=== PATIENT | female | born 1975 | race Caucasian/White ===

== ENCOUNTER 2021-03-19 10:35 | Emergency (ER) | payer OTHER, SELFPAY ==
--- NOTE | ~2021-03-19 | XR_ITS ---
XR foot LT min 3V 03/19/2021 10:59 INDICATION: Left toe foot pain PROCEDURE: 4 views left foot COMPARISON: No prior studies for comparison. FINDINGS: Fracture, dislocation or subluxation is not identified. Lisfranc joint intact. The soft tis sues appear within normal limits. No foreign bodies are identified. IMPRESSION: 1: NO ACUTE BONE OR JOINT ABNORMALITY IDENTIFIED. Reviewed, dictated and finalized at location B.
--- NOTE | 2021-03-19 10:37 | ED.LOWEXIN ---
HPI - Extremity Injury (Lower) General Chief Complaint: Extremity Injury, Lower Stated Complaint: left foot and toe injury Time Seen by Provider: 03/19/21 10:37 Source: patient and RN notes reviewed History of Present Illness HPI Narrative: Patient is a 46-year-old female who presents the urgent care with complaints of left second toe pain and left foot swelling. Patient states that 2 days ago she was knocked over by 2 pit bulls and at that time something happened to the left toe. Patient denies of any wound to the toe and states that she has been james taping it due to a like lead dislocation. Patient has also used ibuprofen for the pain. Patient states that today she noticed some swelling of the left foot and pain radiating up the left foot. No other acute complaints. No acute distress noted. Patient aware of the plan of care. Some parts of this dictation were generated by voice recognition software and may contain typographical and/or grammatical inaccuracies. Related Data Home Medications Medication Instructions Recorded Confirmed amlodipine 5 mg PO DAILY 03/19/21 03/19/21 lacosamide [Vimpat] 200 mg PO Q12H 03/19/21 03/19/21 lamotrigine [Lamictal] 200 mg PO BID 03/19/21 03/19/21 venlafaxine [Effexor XR] 150 mg PO DAILY 03/19/21 03/19/21 Allergies Allergy/AdvReac Type Severity Reaction Status Date / Time Iodinated Contrast Media Allergy Hives Verified 03/19/21 10:53 shellfish derived Allergy Hives Verified 03/19/21 10:53 vancomycin Allergy Hives Verified 03/19/21 10:53 Review of Systems Review of Systems: Narrative: CONSTITUTIONAL: Denies fever, chills, or sweats. EYES: Denies visual changes, redness, or discharge. ENT: Denies rhinorrhea, congestion, sore throat, or otalgia. CARDIOVASCULAR: Denies chest pain, palpitations, or edema. RESPIRATORY: Denies cough or dyspnea. GASTROINTESTINAL: Denies abdominal pain, nausea, vomiting, or diarrhea. GENITOURINARY: Denies dysuria or hematuria. SKIN: Denies rash or itching. MUSCULOSKELETAL: Reports of left foot pain and swelling as well as left second digit pain NEUROLOGIC: Denies headache, numbness, or weakness. All other systems reviewed are negative, except as documented in HPI. PMFSH Comments At the time of my signature, I reviewed and agree with the nursing past medical, surgical, social, and family history. There is no relevant family history pertinent to the patient complaint. Exam Narrative: Exam Narrative: GENERAL: This is a well-nourished, well-developed patient, in no apparent distress. HEAD: normocephalic, atraumatic. EYES: PERRL. Sclera clear/white. Vision is grossly intact. EARS: External ears normal NOSE: External nose normal with no obvious nasal discharge, nares without redness, no rhinorrhea. THROAT: Mucous membranes moist NECK: Neck supple CARDIOVASCULAR: Regular rate and rhythm without murmurs, gallops, or rubs. RESPIRATORY: Clear to auscultation. Breath sounds equal bilaterally. No wheezes, rales, or rhonchi. SKIN: warm, intact with no suspicious lesions or rash, good texture and turgor. NEURO: awake, alert, and oriented to person, place and time. There were no obvious focal neurologic abnormalities. EXTREMITIES: No obvious dislocation or fracture noted to the toes of the left foot. 1+ pitting edema to the left foot with mild to moderate tenderness of the second digit. Positive strong left pedal pulse with capillary refill less than 2 seconds. Range of motion to left lower extremity within normal limits. Course Vital Signs Vital signs: Vital Signs Temperature 99.1 F 03/19/21 10:43 Pulse Rate 81 03/19/21 10:43 Respiratory Rate 16 03/19/21 10:43 Blood Pressure 102/79 03/19/21 10:43 Pulse Oximetry 100 03/19/21 10:43 Temperature 99.1 F 03/19/21 10:43 Pulse Rate 81 03/19/21 10:43 Respiratory Rate 16 03/19/21 10:43 Blood Pressure 102/79 03/19/21 10:43 Pulse Oximetry 100 03/19/21 10:43 Reviewed [facility]
[2021-03-19 10:43] VITALS: BP 102/79; PULSE 81; RESP 16; TEMP 37.3; O2SAT 100
--- NOTE | 2021-03-19 11:01 | PC.NURSE ---
PT DECLINED ICE FOR COMFORT
== END 2021-03-19 11:31 | disposition home or self-care (01) ==
PROVIDERS: Emergency Provider Nurse Practitioner Family; PCP Family Medicine
DX: M79.89 Other specified soft tissue disorders (principal); I10 Essential (primary) hypertension; E03.9 Hypothyroidism, unspecified; Z85.41 Personal history of malignant neoplasm of cervix uteri; F41.9 Anxiety disorder, unspecified; F32.9 Major depressive disorder, single episode, unspecified
CPT/HCPCS: 73630; 99213; G0463